=== PATIENT | female | born 1990 | race Hispanic/Latino ===

== ENCOUNTER → 2017-10-23 | Outpatient (CLI) | payer BC ==
[~2017-10-23] MED LIST: HYDROCODON-ACE1 EA10 PO
--- NOTE | 2017-10-24 08:29 | Diagnostic Imaging Report ---
#[id number] - USBRECOMLT ULTRASOUND OF THE LEFT BREAST : 10/23/2017 No prior exams were available for comparison. Color flow and real-time ultrasound were performed on the entire left breast with scanning in all four quadrants, retroareolar region and the left axilla. -At 2 o'clock 5 cm from the nipple and corresponding to the palpable abnormality is a hypoechoic slightly heterogenous mass measuring 0.9 x 0.9 x 1.1 cm. This mass is hypovascular but is painful with palpation. -At 2 o'clock also 5 cm from the nipple there is a hypechoic mass measuring 1.1 x 0.7 x 1.6 cm. This mass has smooth margins and is hypovascular. -At 3 o'clock 3 cm from the nipple is a septated cyst measuring 0.9 x 0.6 x 0.6 cm. -At 3 o'clock also 3 cm from the nipple is a simple cyst measuring 1.0 x.0.4 x 0.6 cm. -At 10 o'clock 5 cm from the nipple is a simple cyst measuring 0.9 x 0.4 x 0.8 cm. 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 A follow-up ultrasound in 6 months is recommended to demonstrate stability. The patient was notified of these findings and further treatment and/or diagnostic options given. Rell Wallace Jr., D.O. cw/:10/23/2017 13:22:56 Camp Advisor: VICENTE SMITH, [facility] letter sent: Followup Recommended Ultrasound BI-RADS: 3 Probably benign
== END ==
LOC: US 09:24
PROVIDERS: ATTEND Surgery
DX: D24.2 Benign neoplasm of left breast (principal)

== ENCOUNTER → 2017-12-05 | Day surgery (SDC) | payer BC ==
[2017-12-03 10:56] LABS: BASOPHILS % 0.3 % (0.0-1.0); EOSINOPHILS % 0.3 % (0.0-6.0); HEMATOCRIT 40.2 % (34.2-44.1); HEMOGLOBIN 14.3 g/dL (12.0-16.0); LYMPHOCYTES # (AUTO) 2.6 (1.0-3.2); LYMPHOCYTES % 36.9 % (18.0-39.1); MEAN CORPUSCULAR HEMOGLOBIN 31.9 pg (28-32); MEAN CORPUSCULAR HGB CONC 35.6 g/dL (31-35); MEAN CORPUSCULAR VOLUME 89.7 fL (81-99); MONOCYTES # (AUTO) 0.4 (0.2-0.8); NEUTROPHILS % 56.1 % (38.7-80.0); PLATELET COUNT 248 x10e3/uL (140-360); RED BLOOD COUNT 4.48 x10e6/uL (3.6-5.1); RED CELL DISTRIBUTION WIDTH 12.1 % (11.7-14.4)
[~2017-12-05] MED LIST changes: +ACETAMINOPHEN 1000 MG/100 ML IV ONE; +ALPRAZOLAM0.25 MG PO; +BUPIVACAINE 0.25%/EPI 30ML SDV INJ ONE; +DEXAMETHASONE SOD PHOS INJ 4 MG/ML VIAL ONE; +FENTANYL CITRATE/PF 100MCG/2 ML INJ ONE; +KETOROLAC TROMETHAMINE 30 MG/ML VIAL ONE; +LIDOCAINE HCL 2% LOCAL INJ 5 ML SDV VIAL INJ ONE; +MIDAZOLAM HCL 2 MG/2 ML VIAL ONE; +ONDANSETRON HCL INJ 2 MG/ML VIAL ONE; +PROPOFOL IV EMULSION 10 MG/ML 20 ML VIAL ONE; +SEVOFLURANE INHAL SOLN 250 ML PEN BTL ONE
--- OUTSIDE RECORDS SUMMARY | 2017-12-05 08:18 | XMS REPORT ---
[facility] Address Unknown Phone Unavailable Care Team Providers Care Service Inspector Name Role Phone MAKAYLA RUIZ Unavailable Unavailable Problems This patient has no known problems. Allergies, Adverse Reactions, Alerts This patient has no known allergies or adverse reactions. Medications This patient has no known medications. Results Test Description Test Time Test Comments Text Results Atomic Results Result Comments US BREAST COMPLETE LEFT [place] [address] Patient Name: CELSA MAYO MR #: [id number] : 1990 Age/Sex: 26/F Req #: [id number] Adm Physician: Ordered by: MAKAYLA RUIZ MD Report #: [id number] Location: US Room/Bed: Procedure: [id number] US/US BREAST COMPLETE LEFT Exam Date: 10/23/17 Exam Time: 1000 REPORT STATUS: Signed #[id number] - USBRECOMLT ULTRASOUND OF THE LEFT BREAST : 10/23/2017 No prior exams were available for comparison. Color flow and real-time ultrasound were performed on the entire left breast with scanning in all four quadrants, retroareolar region and the left axilla. -At 2 o'clock 5 cm from the nipple and corresponding to the palpable abnormality is a hypoechoic slightly heterogenous mass measuring 0.9 x 0.9 x 1.1 cm. This mass is hypovascular but is painful with palpation. -At 2 o'clock also 5 cm from the nipple there is a hypechoic mass measuring 1.1 x 0.7 x 1.6 cm. This mass has smooth margins and is hypovascular. -At 3 o'clock 3 cm from the nipple is a septated cyst measuring 0.9 x 0.6 x 0.6 cm. -At 3 o'clock also 3 cm from the nipple is a simple cyst measuring 1.0 x.0.4 x 0.6 cm. - At 10 o'clock 5 cm from the nipple is a simple cyst measuring 0.9 x 0.4 x 0.8 cm. 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 A follow-up ultrasound in 6 months is recommended to demonstrate stability. The patient was notified of these findings and further treatment and/or diagnostic options given. Luis Eduardo Wallace Jr., D.O. cw/:10/23/2017 13:22:56 Swing Grinder: VICENTE SMITH, [facility] letter sent: Followup Recommended Ultrasound BI-RADS: 3 Probably benign Dictated By: LUIS EDUARDO WALLACE DO 1322 Transcribed By: DI on 10/23/17 1322 COPY TO: MAKAYLA RUIZ MD
--- NOTE | 2017-12-05 13:32 | Operative Report ---
DATE OF PROCEDURE: December 05, 2017 PREOPERATIVE DIAGNOSIS: Left breast fibroadenoma times 2. POSTOPERATIVE DIAGNOSIS: Left breast fibroadenoma times 2. OPERATION PERFORMED: Left partial mastectomy. ANESTHESIA: General. COMPLICATIONS: None. ESTIMATED BLOOD LOSS: Minimal. DESCRIPTION OF PROCEDURE: With the patient lying in bed in the supine position under good general anesthesia, the left breast was prepped with Betadine solution and draped in the usual manner. The area overlying the palpable masses in the upper outer quadrant of the left breast was then infiltrated with 1/4 percent Marcaine with epinephrine. An incision was made. It was carried down through the subcutaneous tissue. The 2 small masses were then identified. Each one of them was about a centimeter in size. There were some fibrocystic changes of the breast tissue in between. The 2 lesions were then removed together in the same piece of breast tissue, and they were sent for pathological examination. The whole area was then thoroughly irrigated. Perfect hemostasis was ascertained. The breast tissue was then reapproximated with interrupted sutures of 2-0 chromic, and the skin was closed with subcuticular 5-0 Vicryl. A dressing was applied. The sponge, lap and needle count was correct. The patient tolerated the procedure well and returned to the recovery room in stable condition. Job#: [id number]
== END | disposition home or self-care (01) ==
LOC: OR 08:16
PROVIDERS: ATTEND Surgery
DX: D24.2 Benign neoplasm of left breast (principal); N60.12 Diffuse cystic mastopathy of left breast; Z01.812 Encounter for preprocedural laboratory examination
CPT/HCPCS: 19301; 36415; 81025; 85025; 88305; J1100; J1885; J2001; J2250; J2405

== ENCOUNTER 2018-01-29 16:35 | Emergency (ER) | payer BC ==
[~2018-01-29] VITALS: Ht 167.6 cm; Wt 81.6 kg
[~2018-01-29 16:35] MED LIST changes: -ACETAMINOPHEN 1000 MG/100 ML IV ONE; -BUPIVACAINE 0.25%/EPI 30ML SDV INJ ONE; -DEXAMETHASONE SOD PHOS INJ 4 MG/ML VIAL ONE; -FENTANYL CITRATE/PF 100MCG/2 ML INJ ONE; -KETOROLAC TROMETHAMINE 30 MG/ML VIAL ONE; -LIDOCAINE HCL 2% LOCAL INJ 5 ML SDV VIAL INJ ONE; -MIDAZOLAM HCL 2 MG/2 ML VIAL ONE; -ONDANSETRON HCL INJ 2 MG/ML VIAL ONE; -PROPOFOL IV EMULSION 10 MG/ML 20 ML VIAL ONE; -SEVOFLURANE INHAL SOLN 250 ML PEN BTL ONE
[2018-01-29] MEDS ORDERED: SODIUM CHLORIDE 0.9% 1000ML 1,000 ML IV ONE (17:00)
[2018-01-29 17:45] LABS: ANION GAP 11.7 mmol/L (8-16); BLOOD UREA NITROGEN 6 mg/dL (7-26); BUN/CREATININE RATIO 8 (6-25); CALCIUM 9.8 mg/dL (8.4-10.2); CARBON DIOXIDE 27 mmol/L (22-29); CHLORIDE 104 mmol/L (98-107); CREATINE KINASE 204 IU/L (29-168); CREATININE, SERUM 0.71 mg/dL (0.57-1.11); EST GLOMERULAR FILTRATION RATE > 60 ML/MIN (60-); GLUCOSE 83 mg/dL (74-118); POTASSIUM 3.7 mmol/L (3.5-5.1); SODIUM 139 mmol/L (136-145)
[2018-01-29 20:07] VITALS: BP 133/89
== END 2018-01-29 19:40 | disposition home or self-care (01) ==
LOC: ER 16:35
CPT/HCPCS: 36415; 80048; 82550; 93005; 99284; J7030

== ENCOUNTER 2019-04-27 05:29 | Observation (INO) | payer BC, SELFPAY ==
[~2019-04-27] VITALS: Ht 167.6 cm; Wt 81.6 kg
--- OUTSIDE RECORDS SUMMARY | 2019-04-27 05:37 | XMS REPORT | Continuity of Care Document ---
Author Author [facility] Organization [facility] Address Unknown Phone Unavailable Care Team Providers Care Planning Management It Specialist Name Role Phone MD Barbara, Peter PP Unavailable Insurance Providers Payer name Policy type / Coverage type Policy ID Covered alliance party ID Policy [place] Encounters Encounter Performer Location Date Office Visit Peter Jimenez MD [facility] Colorectal Surgery February 17, 2015 Problems Problem Effective Dates Problem Status DIARRHEA January 27, 2015 Active ANAL FISSURE January 27, 2015 Active RECTAL PAIN January 27, 2015 Active Medications Medication Instructions Start Date Status PANTOPRAZOLE SODIUM 40 MG TBEC January 27, 2015 Active ANALPRAM-HC CREA January 27, 2015 Active NIFEDIPINE 0.2% LIDOCAINE 5% TOPICAL COMPOUND CREAM apply to affected area TID as directed January 27, 2015 Active Vital Signs Date Description Test Result January 27, 2015 height E&M - 8302-2 HEIGHT 66 in January 27, 2015 weight E&M - 3141-9 WEIGHT 171 lb January 27, 2015 temperature E&M TEMPERATURE 98.4 deg f January 27, 2015 blood pressure, systolic - 8480-6 BP SYSTOLIC 124 mm Hg January 27, 2015 blood pressure, diastolic - 8462-4 BP DIASTOLIC 86 mm Hg February 17, 2015 height E&M - 8302-2 HEIGHT 66 in February 17, 2015 weight E&M - 3141-9 WEIGHT 177 lb February 17, 2015 temperature E&M TEMPERATURE 98.6 deg f February 17, 2015 pulse rate E&M - 8867-4 PULSE RATE 69 /min February 17, 2015 blood pressure, systolic - 8480-6 BP SYSTOLIC 129 mm Hg February 17, 2015 blood pressure, diastolic - 8462-4 BP DIASTOLIC 85 mm Hg
--- OUTSIDE RECORDS SUMMARY | 2019-04-27 05:37 | XMS REPORT | Continuity of Care Document ---
Author Author [facility] Organization [facility] Address Unknown Phone Unavailable Care Team Providers Care Market Relationship Manager Name Role Phone MD Barbara, Peter PP Unavailable Insurance Providers Payer name Policy type / Coverage type Policy ID Covered green party ID [place] Encounters Encounter Performer Location Date Office Visit Peter Jimenez MD [facility] Surgery [place] January 27, 2015 Problems Problem Effective Dates Problem Status [...]
--- OUTSIDE RECORDS SUMMARY | 2019-04-27 05:37 | XMS REPORT | Continuity of Care Document ---
Author Author [facility] Organization [facility] Address Unknown Phone Unavailable Care Team Providers Care Radiology Assistant Name Role Phone [email or web address] Information [employer] Unavailable Unavailable Problems Problem Status Onset Date Classification Date Reported Comments Source Anal fissure1, 2 Active 01/27/2015 Problem 09/17/2017 Data migrated from [employer] on 04/05/15. Data migrated from [employer] on 04/05/15. [facility] Diarrhea3, 4 Active 01/27/2015 Problem 09/17/2017 Data migrated from [employer] on 04/05/15. Data migrated from [employer] on 04/05/15. Medical Group Rectal pain5, 6 Active 01/27/2015 Problem 09/17/2017 Data migrated from [employer] on 04/05/15. Data migrated from [employer] on 04/05/15. Medical Group DIARRHEA Active 01/27/2015 Condition 02/17/2015 Medical Group ANAL FISSURE Active 01/27/2015 Condition 02/17/2015 Medical Group RECTAL PAIN Active 01/27/2015 Condition 02/17/2015 [facility] Group Medications Medication Details Route Status Patient Instructions Ordering Provider Order Date Source Brompheniramine Maleate 0.4 MG/ML / Dextromethorphan Hydrobromide 2 MG/ML / Pseudoephedrine Hydrochloride 6 MG/ML Oral Solution [Bromfed DM] See Instructions, PRN cough, 5-10 mL PO TID 8 day, # 200 mL, 0 Refill(s), Pharmacy: [id number] Inactive 09/14/2017 Medical Group azithromycin 250 mg oral tablet See Instructions, Take 2 tablets by mouth the first day then 1 tablet by mouth daily on days 2-5., X 5 day, # 6 tab, 0 Refill(s), Pharmacy: [facility] Active 09/14/2017 Medical Group PANTOPRAZOLE SODIUM 40 MG TBEC Active 01/27/2015 [facility] ANALPRAM-HC CREA Active 01/27/2015 Medical Group NIFEDIPINE 0.2% LIDOCAINE 5% TOPICAL COMPOUND CREAM apply to affected area TID as directed Active 01/27/2015 [facility] Allergies, Adverse Reactions, Alerts No Known Medication Allergies Immunizations No Data Provided for This Section Results No Data Provided for This Section Pathology Reports No Data Provided for This Section Diagnostic Reports No Data Provided for This Section Consultation Notes No Data Provided for This Section Discharge Summaries No Data Provided for This Section History and Physicals No Data Provided for This Section Vital Signs Vital Sign Value Date Comments Source BMI Calculated 28.99 09/14/2017 Medical Group Height 167.64 cm 09/14/2017 [facility] Temperature Oral (F) 97.7 F 09/14/2017 [facility] Heart Rate 94 09/14/2017 [facility] Group Systolic (mm Hg) 109 09/14/2017 [facility] Diastolic (mm Hg) 75 09/14/2017 Medical Group Respitory Rate 14 09/14/2017 Medical Group Weight 81.477 09/14/2017 [facility] Group Height 66 02/17/2015 Medical Group Weight 177 02/17/2015 [facility] Temperature Oral (F) 98.6 F 02/17/2015 Medical Group Heart Rate 69 02/17/2015 [facility] Systolic (mm Hg) 129 02/17/2015 [facility] Diastolic (mm Hg) 85 02/17/2015 [facility] Height 66 01/27/2015 [facility] Weight 171 01/27/2015 [facility] Temperature Oral (F) 98.4 F 01/27/2015 [facility] Group Systolic (mm Hg) 124 01/27/2015 Medical Group Diastolic (mm Hg) 86 01/27/2015 [facility] Encounters Location Location Details Encounter Type Encounter Number Reason For Visit Attending Provider ADM Date DC Date Status Source [facility] [place] Office Visit [id number] Peter Jimenez MD 01/27/2015 01/27/2015 [facility] Surgery [place] Office Visit [id number] Peter Jimenez MD 01/27/2015 01/27/2015 [facility] Colorectal Surgery Office Visit [id number] Peter Jimenez MD 02/17/2015 02/17/2015 [facility] Outpatient [id number] KIMBERLY DAMONDHEERAJ 09/14/2017 Active [facility] [place] Outpatient [id number] David Everett 09/14/2017 09/15/2017 Medical Group Procedures No Data Provided for This Section Assessment and Plan No Data Provided for This Section Plan of Care No Data Provided for This Section Social History Social History Date Source Social History TypeResponse Smoking Status Never smoker; Ready to change: No; Concerns about tobacco use in household: No; Exposure to Tobacco Smoke None; Cigarette Smoking Last 365 Days No; Reg Smoking Cessation Counseling No 09/14/2017 Medical Group Family History No Data Provided for This Section Advance Directives No Data Provided for This Section Functional Status No Data Provided for This Section
--- OUTSIDE RECORDS SUMMARY | 2019-04-27 05:37 | XMS REPORT | Summary of Care ---
Author Author [facility] Address Unknown Phone Unavailable Encounter PAT Dunbar(BENJAMIN) [id number] Date(s): 09/14/17 - 09/14/17 [facility] [address] [place] [phone] Discharge Disposition: Home or Self Care Referring Physician: David Floyd MD Vital Signs Most recent to 1 oldest [Reference Range]: Height 167.64 cm (09/14/17 4:58 PM) Temperature Oral 97.7 DegF [96.4-99.1 DegF] (09/14/17 4:58 PM) Blood Pressure 109/75 mmHg [90-140/60-90 mmHg] (09/14/17 4:58 PM) Respiratory Rate 14 BRMIN [14-20 BRMIN] (09/14/17 4:58 PM) Peripheral Pulse 94 bpm Rate [60-100 bpm] (09/14/17 4:58 PM) Weight 81.477 kg (09/14/17 4:58 PM) Body Mass Index 28.99 m2 (09/14/17 4:58 PM) Problem List Condition Effective Dates Status Health Status Informant Anal fissure1, 2 01/27/15 Active Diarrhea3, 4 01/27/15 Active Rectal pain5, 6 01/27/15 Active 1Data migrated from [employer] on 04/05/15. 2Data migrated from [employer] on 04/05/15. 3Data migrated from [employer] on 04/05/15. 4Data migrated from [employer] on 04/05/15. 5Data migrated from [employer] on 04/05/15. 6Data migrated from [employer] on 04/05/15. Allergies, Adverse Reactions, Alerts Substance Reaction Severity Status NKDA1 Active 1Data migrated from [employer] on 12/01/15. Originally documented as NKA. Medications azithromycin 250 mg oral tablet See Instructions, Take 2 tablets by mouth the first day then 1 tablet by mouth d aily on days 2-5., X 5 day, # 6 tab, 0 Refill(s), Pharmacy: [id number] Start Date: 09/14/17 Stop Date: 09/19/17 Status: Ordered Bromfed DM oral syrup See Instructions, PRN cough, 5-10 mL PO TID 8 day, # 200 mL, 0 Refill(s), Pharma [facility]: [id number] Start Date: 09/14/17 Stop Date: 09/14/17 Status: Completed Results No data available for this section Immunizations No data available for this section Procedures No data available for this section Social History Social History Type Response Smoking Status Never smoker; Ready to change: No; Concerns about tobacco use in household: No; Exposure to Tobacco Smoke None; Cigarette Smoking Last 365 Days No; Reg Smoking Cessation Counseling No Assessment and Plan No data available for this section
--- OUTSIDE RECORDS SUMMARY | 2019-04-27 05:37 | XMS REPORT | Continuity of Care Document ---
Author Author [facility] Organization [facility] Address Unknown Phone Unavailable Care Team Providers Care Clinical Documentation Clerk Name Role Phone MD Barbara, Peter PP Unavailable Insurance Providers Payer name Policy type / Coverage type Policy ID Covered republican ID Policy [place] Encounters Encounter Performer Location Date Office Visit Peter Jimenez MD [facility] Surgery [place] January 27, 2015 Problems Problem Effective Dates [...]
[2019-04-27] MEDS ORDERED: CEFAZOLIN SOD 1 GM/NS 50ML 50 ML IV ONE (06:09)
[2019-04-27] MEDS ORDERED: MUPIROCIN 2% OINT 22 GM TUBE ONE (06:17)
[2019-04-27] MEDS ORDERED: BACITRACIN 50,000 UNIT VIAL ONE (07:25)
[2019-04-27] MEDS ORDERED: BUPIVACAINE 0.25% 30ML SDV INJ ONE (08:29)
[2019-04-27] MEDS ORDERED: BUPIVACAINE LIPOSOME/PF 266 MG/20 ML IJ ONE (08:29)
[2019-04-27] MEDS ORDERED: ACETAMINOPHEN 325 MG TAB PO PRN (11:30)
[2019-04-27] MEDS ORDERED: FENTANYL CITRATE/PF 100MCG/2 ML INJ ONE ×2 (12:00→18:35)
[2019-04-27] MEDS ORDERED: MEPERIDINE HCL INJ 25 MG/ML VIAL ONE (12:05)
--- OUTSIDE RECORDS SUMMARY | 2019-04-27 12:56 | XMS REPORT | Continuity of Care Document ---
Author Author [facility] Organization [facility] [facility] Address Unknown Phone Unavailable Care Team Providers Care Record Keeper Name Role Phone Network [employer] Information [employer] Unavailable Unavailable Problems Problem Status Onset Date Classification Date Reported Comments Source Anal fissure1, 2 Active 01/27/2015 Problem 09/17/2017 Data migrated from [employer] on 04/05/15. Data migrated from [employer] on 04/05/15. Medical Group Diarrhea3, 4 [...] day, # 200 mL, 0 Refill(s), Pharmacy: [id number] Inactive 09/14/2017 Medical Group azithromycin 250 mg oral tablet See Instructions, Take 2 tablets by mouth the first day then 1 tablet by mouth daily on days 2-5., X 5 day, # 6 tab, 0 Refill(s), Pharmacy: [facility] Active 09/14/2017 Medical Group PANTOPRAZOLE SODIUM 40 MG TBEC Active 01/27/2015 [facility] ANALPRAM-HC CREA Active 01/27/2015 Medical Group [...] Provider ADM Date DC Date Status Source [facility] [place] Office Visit [id number] Peter Jimenez MD 01/27/2015 01/27/2015 [facility] [place] Office Visit [id number] Peter Jimenez MD 01/27/2015 01/27/2015 [facility] Colorectal Surgery Office Visit [id number] Peter Jimenez MD 02/17/2015 02/17/2015 Medical [facility] Outpatient [id number] KIMBERLY DAMONDHEERAJ 09/14/2017 Active [facility] [place] Outpatient [id number] David Everett 09/14/2017 09/15/2017 Medical Group Procedures [...]
[2019-04-27 13:27] VITALS: BP 114/78
[2019-04-27 13:55] VITALS: BP 114/78
[2019-04-27] MEDS: CEFAZOLIN SOD 1 GM/NS 50ML 50 ML IV SCH ×2 (14:29→22:05)
[2019-04-27] MEDS: HYDROCODONE/APAP 7.5MG-325MG 1 EA TAB PO PRN (14:34)
--- NOTE | 2019-04-27 15:06 | Operative Report ---
DATE OF PROCEDURE: 04/27/2019 SURGEON: Humphrey De La Vega MD PREOPERATIVE DIAGNOSES: 1. involution of breast. 2. Abdominal lipodystrophy. POSTOPERATIVE DIAGNOSES: 1. involution of breast. 2. Abdominal lipodystrophy. PROCEDURES: 1. Bilateral augmentation mammoplasty. 2. Abdominal plasty. ANESTHESIA: General. HISTORY: The patient is a 28-year-old female, who complains of involution of the breasts and abdominal lipodystrophy. The risks, benefits, and alternatives of treatment were discussed with the patient. She is prepared to undergo the procedure as outlined. She has signed the [employer] [place] [employer] consent forms for the aforementioned procedures. PROCEDURE IN DETAIL: The patient was marked preoperatively in the holding area. She was brought to the operating theater and after the induction of adequate general anesthesia, placement of a Parisi catheter and Venodyne compression boots. She is prepped and draped in a supine position and a time-out was performed. The procedure was begun on the augmentation mammoplasty 1st. Two inframammary incisions were marked out 6 to 6-1/2 cm in length beneath each breast. The incisions were made through the skin and subcutaneous tissue. Bleeding was controlled using the electrocautery. The electrocautery was used to deepen the incision through the subcutaneous and breast tissue. The inferior border of the pectoralis major muscle was then identified and the dissection continues in the lower half of each breast in the prepectoral plane. This dual plane technique is utilized to allow redraping of the tissues for maximum correction of the ptosis. Once both lower hemispheres are completely released, the pectoralis major muscles are transected using the electrocautery, leaving a cuff of tissue on the inframammary fold to maintain integrity of the fold. Once the pectoralis major muscles are transected, the subpectoral space is entered and the plane between the pec major and pec minor was developed. The excision continues both medially, laterally, and superiorly until the pockets were developed to the corresponding tarango on the skin. Both pockets were copiously irrigated with bacteriostatic saline and checked for hemostasis. At this point, 450 mL sizers were placed into each breast pocket. There are some correction of the pockets, which needs to be performed in order to allow smooth draping of the tissues over the sizers. The sizes are removed and the pockets were then adjusted accordingly. At this point, the sizers were placed back into the pockets and the patient was sat up and assessed. There was noted to be a good contour of the soft tissues over the implants and then the patient was made supine. This implant sizers were removed. Both pockets were checked for hemostasis, which was made absolute using electrocautery. Both pockets were then irrigated with an antibiotic containing solution. Two 450 mL moderately high profile round smooth implants are prepared per bowling ball molder's specification. The lot number and serial number located within the patient's chart. The implants were then placed within the respective pockets and then the incisions were closed in layers as follows. A 3-0 Monocryl was used in interrupted fashion to approximate the deep subcutaneous tissue 4-0 Monocryl was used in an interrupted buried fashion to approximate the deep dermis and 5-0 Monocryl was used in a running subcuticular fashion to approximate the epidermis. Steri-Strips were applied to the incisions. Attention was turned to the performance of the abdominoplasty. At this point, the midline from xiphoid to pubic symphysis was marked out and it was noted that the umbilicus was deviated slightly to the right. Also of note, it is that the patient has had previous umbilical piercings, which have distorted the umbilicus. Approximately, 8 cm from the antritis, a horizontal incision was marked 6 to 7 cm on each side of the midline and then the incision was carried towards the anterior superior iliac spines and towards the lateral hips. The incision was made through the skin and subcutaneous tissues. Bleeding is controlled using the electrocautery. Using electrocautery, the incision was deepened through the subcutaneous tissue and through Claudette's fascia. At this point, the anterior rectus fascia was then identified and the anterior skin and subcutaneous tissue was then elevated off the rectus fascia. This dissection continues with electrocautery until the umbilicus was reached. At this point, the umbilicus was marked down sharply circumscribed and released from the anterior skin and subcutaneous tissue, maintaining a generous amount of subcutaneous tissue to maintain vascularity. Once the umbilicus was completely released, the dissection continues cephalad to the umbilicus all the way to the xiphoid and the costal margins. Care was taken to coapt all of the perforators and ensure adequate hemostasis. Once the entire anterior soft tissue has been elevated off the rectus fascia, a rectus plication was marked out from the xiphoid to the umbilicus, and then from the umbilicus to the pubic symphysis. The maximum width of the plication is at the level of the umbilicus and corresponds to a 7 cm. At this point, using 0 Ethibond suture in an interrupted buried fashion. Plication of the anterior rectus fascia was performed from the xiphoid to the level of the umbilicus, directly below the umbilicus the plication continues in an interrupted fashion from the umbilicus to the pubic symphysis. At this juncture, for postop analgesia, a vial of Exparel which is 20 mL was mixed with 0.5% plain Marcaine 30 mL, and then a through 1 mL injections adjacent to the midline and then adjacent to that line of injection into the rectus fascia and muscle. The Exparel was injected bilaterally. At this juncture, the wound was copiously irrigated with bacteriostatic saline and the patient was then put in a posture with the head of the bed is approximately 40 to 45 degrees. The hips were flexed and the knees were flexed as well with maximum redundancy of the anterior skin and subcutaneous tissues. The skin was marked out and then judiciously excised. The wound edges made hemostatic using the electrocautery. At this point, two 15-Macedonian Rosalio-Matos drains were placed in the abdominal wound and secured to the skin with 3-0 nylon sutures. One drain courses above the umbilicus, the other course was below the umbilicus. The skin was then closed in the following fashion. 2-0 PDS was used in interrupted fashion to approximate Claudette's fascia. INSORB staplers were then used to approximate the dermis and subcutaneous tissue. A 4-0 Monocryl running subcuticular stitch was then used to reapproximate the epidermis. In the midline, directly over the umbilicus, a 2 cm vertical ellipse of tissue was marked out and then incised through the skin and subcutaneous tissues, and removed. The area was generously defatted using electrocautery. At this point, the umbilicus was brought out onto the anterior abdominal wall and secured using 3-0 Monocryl suture in an interrupted buried fashion followed by simple circumferential 5-0 nylon sutures. At the completion of the procedure, the umbilicus was noted to be well vascularized. The abdominal incision is hemostatic and the PERRY drains were placed on suction. Steri-Strips were applied to all the incisions. Sterile dressings are applied and the patient is then transferred to a hospital bed. She was taken to recovery room in satisfactory condition and then admitted for overnight observation. The estimated blood loss for the entire procedure was approximately 125 to 150 mL. MD ABNER Toscano/MAGLAYL /[id number]
[2019-04-27] MEDS: DOCUSATE SODIUM 100 MG CAP PO SCH (16:11)
[2019-04-27 16:48] VITALS: BP 105/55
[2019-04-27] MEDS ORDERED: ACETAMINOPHEN 1000 MG/100 ML IV ONE (17:16)
[2019-04-27] MEDS ORDERED: SEVOFLURANE INHAL SOLN 250 ML PEN BTL ONE (17:16)
[2019-04-27] MEDS ORDERED: GLYCOPYRROLATE INJ 1MG/ 5 ML SYR ONE (17:16)
[2019-04-27] MEDS ORDERED: ONDANSETRON HCL INJ 2MG/ML 2ML 2 MG/ML VIAL ONE (17:16)
[2019-04-27] MEDS ORDERED: NEOSTIGMINE 5 MG/5ML SYR ONE (17:16)
[2019-04-27] MEDS ORDERED: LIDOCAINE HCL 2% LOCAL INJ 5 ML SDV VIAL INJ ONE (17:16)
[2019-04-27] MEDS ORDERED: ROCURONIUM BROMIDE 10 MG/ML 5ML VIAL ONE (17:16)
[2019-04-27] MEDS ORDERED: PROPOFOL IV EMULSION 10 MG/ML 20 ML VIAL ONE (17:16)
[2019-04-27] MEDS ORDERED: DEXAMETHASONE SOD PHOS INJ 4 MG/ML VIAL ONE (17:16)
[2019-04-27] MEDS: HYDROMORPHONE 1MG/1ML INJ IV PRN ×2 (17:34→22:21)
[2019-04-27] MEDS: ONDANSETRON HCL 4 MG ORAL DISINTEGRATING TAB PO PRN (17:35)
[2019-04-27] MEDS ORDERED: MORPHINE SULFATE INJ 10 MG/ML ONE (18:35)
[2019-04-27] MEDS ORDERED: MIDAZOLAM HCL 2 MG/2 ML VIAL ONE (18:35)
[2019-04-27 20:22] VITALS: BP 99/58
[2019-04-27] MEDS: LACTATED RINGER'S 1,000 ML IV SCH (21:30)
--- NOTE | 2019-04-27 22:00 | NUR ---
Pt abdominal incision gauze at umbilicus saturated. Sterile dressing changed at this time.
[2019-04-28 00:16] VITALS: BP 100/63
[2019-04-28] MEDS: LACTATED RINGER'S 1,000 ML IV SCH ×2 (02:04→07:30)
[2019-04-28] MEDS: HYDROCODONE/APAP 7.5MG-325MG 1 EA TAB PO PRN ×2 (02:11→06:25)
[2019-04-28 05:11] VITALS: BP 100/63
[2019-04-28 05:17] VITALS: BP 102/52
[2019-04-28] MEDS: CEFAZOLIN SOD 1 GM/NS 50ML 50 ML IV SCH (05:32)
--- NOTE | 2019-04-28 07:00 | NUR ---
Report given to ARCHIE Moran dayshift nurse at this time.
--- NOTE | 2019-04-28 07:13 | NUR ---
Parisi DC'd at this time without any complications. DTV [id number].
[2019-04-28 08:04] VITALS: BP 99/56
[2019-04-28] MEDS ORDERED: ENOXAPARIN SOD INJ 40 MG/0.4 ML SYR SC SCH (09:00)
[2019-04-28] MEDS: DOCUSATE SODIUM 100 MG CAP PO SCH (09:06)
[2019-04-28] MEDS: ONDANSETRON HCL 4 MG ORAL DISINTEGRATING TAB PO PRN (09:25)
[2019-04-28] MEDS: HYDROMORPHONE 1MG/1ML INJ IV PRN (09:26)
[2019-04-28 09:43] VITALS: BP 99/56
--- NOTE | 2019-04-28 12:00 | NUR ---
NO VOIDING AT THIS TIME BLADDER SCAN DONE >350 CC OF URINE NOTED PT STATES SHE WILL TRY TO VOID AND WALKER AGAIN AND CALL ME WHEN SHE VOIDS
[2019-04-28 12:17] VITALS: BP 105/56
--- NOTE | 2019-04-28 12:37 | NUR ---
PT VOIDED INTO TOILET AT THIS TIME WILL GET DC PAPERWORK READY
[2019-04-28] MEDS ORDERED: KEFLEX500 MG PO (13:00)
[2019-04-28] MEDS ORDERED: NORCO 10-325 T1 EACH PO (13:00)
--- NOTE | 2019-04-28 13:14 | NUR ---
dc instructions given and prescriptions . pt verbalized understanding iv dc pressure dressing applied and taped pt is waiting for ride home at this time
== END 2019-04-28 14:01 | disposition home or self-care (01) ==
LOC: OR 05:29 → PACU V 11:32 → MED/SURG 13:15
PROVIDERS: ADMIT Plastic Surgery; ATTEND Plastic Surgery
DX: N60.82 Other benign mammary dysplasias of left breast (principal); N60.81 Other benign mammary dysplasias of right breast; E88.1 Lipodystrophy, not elsewhere classified
CPT/HCPCS: 15847; 19325; 81025; C1789; C9290; G0378 ×2; J0131; J0690 ×2; J1100; J1170 ×2; J1650; J2001; J2175; J2250; J2270; J2405; J2704; J3010; J3490; J7121; Q0162 ×2

== ENCOUNTER → 2020-03-10 | Day surgery (SDC) | payer BC ==
[~2020-03-10] MED LIST changes: +ACETAMINOPHEN 1000 MG/100 ML IV ONE; +BUPIVACAINE 0.25%/EPI 30ML SDV INJ ONE; +BUPIVACAINE LIPOSOME/PF 266 MG/20 ML IJ ONE; +CEFAZOLIN SOD 1 GM VIAL ONE; +DEXAMETHASONE SOD PHOS INJ 4 MG/ML VIAL ONE; +FENTANYL CITRATE/PF 100MCG/2 ML INJ ONE; +KEFLEX500 MG PO; +KETOROLAC TROMETHAMINE 30 MG/ML VIAL ONE; +LIDOCAINE HCL 1% LOCAL INJ 20 ML VIAL ONE; +LIDOCAINE HCL 2% 30 ML TUBE ONE; +LIDOCAINE HCL 2% LOCAL INJ 5 ML SDV VIAL INJ ONE; +MEPERIDINE HCL INJ 25 MG/ML VIAL ONE; +MIDAZOLAM HCL 2 MG/2 ML VIAL ONE; +NORCO 10-325 T1 EACH PO; +ONDANSETRON HCL INJ 2MG/ML 2ML 2 MG/ML VIAL ONE; +PHENTERMINE HCL15 MG PO; +PROPOFOL IV EMULSION 10 MG/ML 20 ML VIAL ONE; +SEVOFLURANE INHAL SOLN 250 ML PEN BTL ONE
[2020-03-10 13:36] LABS: BASOPHILS % 0.1 % (0.0-1.0); EOSINOPHILS % 0.4 % (0.0-6.0); HEMATOCRIT 40.3 % (34.2-44.1); HEMOGLOBIN 13.6 g/dL (12.0-16.0); MEAN CORPUSCULAR HEMOGLOBIN 31.3 pg (28-32); MEAN CORPUSCULAR HGB CONC 33.7 g/dL (31-35); MEAN CORPUSCULAR VOLUME 92.9 fL (81-99); MONOCYTES # (AUTO) 0.4 (0.2-0.8); MONOCYTES % 5.2 % (4.4-11.3); NEUTROPHILS # (AUTO) 4.3 (2.1-6.9); NEUTROPHILS % 63.9 % (38.7-80.0); PLATELET COUNT 209 x10e3/uL (140-360); RED BLOOD COUNT 4.34 x10e6/uL (3.6-5.1)
[2020-03-10 13:58] LABS: ANION GAP 12.8 mmol/L (8-16); BLOOD UREA NITROGEN 13 mg/dL (7-26); BUN/CREATININE RATIO 18 (6-25); CALCIUM 9.1 mg/dL (8.4-10.2); CARBON DIOXIDE 22 mmol/L (22-29); CHLORIDE 108 mmol/L (98-107); CREATININE, SERUM 0.71 mg/dL (0.57-1.11); EST GLOMERULAR FILTRATION RATE > 60 ML/MIN (60-); GLUCOSE 79 mg/dL (74-118); POTASSIUM 3.8 mmol/L (3.5-5.1); SODIUM 139 mmol/L (136-145)
[2020-03-10 15:50] VITALS: BP 117/76
--- NOTE | 2020-03-10 20:59 | Operative Report ---
DATE OF PROCEDURE: 03/10/2020 SURGEON: Nakul Weaver MD PREOPERATIVE DIAGNOSIS: Thrombosed hemorrhoids, rule out anal fissure. POSTOPERATIVE DIAGNOSIS: Thrombosed hemorrhoids and posterior anorectal fissure. OPERATIONS PERFORMED: Left partial lateral superficial internal sphincterotomy and hemorrhoidectomy. ANESTHESIA: General. COMPLICATIONS: None. ESTIMATED BLOOD LOSS: Minimal. DESCRIPTION OF PROCEDURE: With the patient lying in bed in the supine position under good general endotracheal anesthesia. The patient was then placed in lithotomy. The perineum was prepped with Betadine solution and draped in the usual manner. Examination at this point revealed a posterior anorectal fissure with some thrombosed external hemorrhoids. A complete anorectal block was then performed using 0.25% Marcaine and 1% Xylocaine. A small incision was then made at the 3 o'clock position and the internal sphincter superficial fibers were then partially divided with the cautery to give us a good release. After this was done, hemostasis was ascertained, and the wound was closed with interrupted sutures of 3-0 chromic. A posterior fissure was then debrided and cleaned up, and an external hemorrhoid in this area was similarly resected. There was also two other groups of hemorrhoids at the 10 and 2 o'clock position and these were individually resected with hemostasis was ascertained, and the wound was then closed with interrupted sutures of 3-0 chromic. Hemostasis was ascertained. Exparel block was then performed. A Gelfoam pack impregnated with Xylocaine was placed. A dressing was applied. The sponge, lap, and needle counts were correct. The patient tolerated the procedure well and returned to the recovery room in stable condition. Nakul Weaver MD JLR/MODL /[id number]
== END | disposition home or self-care (01) ==
LOC: OR 12:14
PROVIDERS: ATTEND Surgery
DX: K64.5 Perianal venous thrombosis (principal); K60.2 Anal fissure, unspecified; Z11.59 Encounter for screening for other viral diseases
CPT/HCPCS: 36415; 46200; 46320; 80048; 81025; 85025; 87635; C9290; J0131; J0690; J1100; J1885; J2001 ×2; J2175; J2250; J2405; J2704; J3010

== ENCOUNTER → 2020-09-27 | Outpatient (CLI) | payer OTHER ==
[~2020-09-27] MED LIST changes: -ACETAMINOPHEN 1000 MG/100 ML IV ONE; -BUPIVACAINE 0.25%/EPI 30ML SDV INJ ONE; -BUPIVACAINE LIPOSOME/PF 266 MG/20 ML IJ ONE; -CEFAZOLIN SOD 1 GM VIAL ONE; +COVID-19 VACC, MRNA(MODERNA)/PF 100 MCG/0.5 ML VIAL IM ONE; -DEXAMETHASONE SOD PHOS INJ 4 MG/ML VIAL ONE; -FENTANYL CITRATE/PF 100MCG/2 ML INJ ONE; -KETOROLAC TROMETHAMINE 30 MG/ML VIAL ONE; -LIDOCAINE HCL 1% LOCAL INJ 20 ML VIAL ONE; -LIDOCAINE HCL 2% 30 ML TUBE ONE; -LIDOCAINE HCL 2% LOCAL INJ 5 ML SDV VIAL INJ ONE; -MEPERIDINE HCL INJ 25 MG/ML VIAL ONE; -MIDAZOLAM HCL 2 MG/2 ML VIAL ONE; -ONDANSETRON HCL INJ 2MG/ML 2ML 2 MG/ML VIAL ONE; -PROPOFOL IV EMULSION 10 MG/ML 20 ML VIAL ONE; -SEVOFLURANE INHAL SOLN 250 ML PEN BTL ONE
== END ==
LOC: VACCPMC 12:06
DX: Z23 Encounter for immunization (principal); Z20.828 Contact with and (suspected) exposure to other viral communicable diseases

== ENCOUNTER → 2020-11-06 | Outpatient (CLI) | payer OTHER ==
[~2020-11-06] MED LIST changes: -COVID-19 VACC, MRNA(MODERNA)/PF 100 MCG/0.5 ML VIAL IM ONE
[2020-11-06] MEDS: COVID-19 VACC, MRNA(MODERNA)/PF 100 MCG/0.5 ML VIAL IM ONE ×2 (11:18→11:47)
== END | DRG 951 ==
LOC: VACCPMC 11:07
DX: Z23 Encounter for immunization (principal); Z20.822 Contact with and (suspected) exposure to COVID-19
CPT/HCPCS: 0012A; 91301

== ENCOUNTER → 2021-06-20 | Outpatient (CLI) | payer BC, OTHER | LOC: VACCPMC 12:00 | DX: Z23 Encounter for immunization (principal); Z20.822 Contact with and (suspected) exposure to COVID-19 ==

== ENCOUNTER → 2021-09-26 | Outpatient (CLI) | payer BC, OTHER ==
[~2021-09-26] MED LIST changes: +COVID-19 VACC, MRNA(MODERNA)/PF 100 MCG/0.5 ML VIAL IM ONE
== END ==
LOC: VACCPMC 08:00
DX: Z23 Encounter for immunization (principal); Z20.822 Contact with and (suspected) exposure to COVID-19
CPT/HCPCS: 91301

== ENCOUNTER 2021-10-16 11:53 | Emergency (ER) | payer BC, OTHER ==
[~2021-10-16] VITALS: Ht 167.6 cm; Wt 70.3 kg
[~2021-10-16 11:53] MED LIST changes: -COVID-19 VACC, MRNA(MODERNA)/PF 100 MCG/0.5 ML VIAL IM ONE
[2021-10-16] MEDS ORDERED: KETOROLAC TROMETHAMINE 30 MG/ML VIAL IV NR (13:15)
[2021-10-16] MEDS ORDERED: ONDANSETRON HCL INJ 2MG/ML 2ML 2 MG/ML VIAL IV NR (13:15)
[2021-10-16] MEDS ORDERED: IOPAMIDOL 370 MG/ML 200 ML INFUS..BTL INJ ONE (13:56)
[2021-10-16] MEDS ORDERED: SODIUM CHLORIDE 0.9% 50ML 50 ML ONE (13:56)
== END 2021-10-16 14:00 | disposition home or self-care (01) ==
LOC: FSED 12:08
DX: R10.31 Right lower quadrant pain (principal); N20.0 Calculus of kidney; R11.0 Nausea; K59.00 Constipation, unspecified
CPT/HCPCS: 74177; 80053; 81003; 81025; 85025; 99283; J1885; J2405; Q9967

== ENCOUNTER → 2022-07-18 | Outpatient (CLI) | payer BC, OTHER | LOC: US 13:02 | PROVIDERS: ATTEND Obstetrics & Gynecology | DX: R10.2 Pelvic and perineal pain (principal) | CPT/HCPCS: 76830; 76856 ==

== ENCOUNTER → 2025-02-16 | Outpatient (REF) | payer BC | LOC: MRI 13:51 | PROVIDERS: ATTEND Surgery | DX: M54.50 Low back pain, unspecified (principal) | CPT/HCPCS: 72148 ==

== ENCOUNTER → 2025-03-02 | Day surgery (SDC) | payer BC ==
[~2025-03-02] MED LIST changes: +CYCLOBENZAPRINE10 MG PO; +LIDOCAINE HCL 2% LOCAL INJ 5 ML SDV VIAL INJ ONE; +NAPROSYN500 MG PO; +PROPOFOL IV EMULSION 10 MG/ML 20 ML VIAL ONE; +SEMAGLUTID0.5 MG/0.1
[2025-03-02] MEDS: LACTATED RINGER'S 1,000 ML ONE (07:53)
[2025-03-02 09:26] VITALS: TEMP 97.8
[2025-03-02 09:55] VITALS: BP 107/73; PULSE 83; RESP 16; O2SAT 99
== END | disposition home or self-care (01) ==
LOC: OR 07:24
PROVIDERS: ATTEND Physical Medicine & Rehabilitation Pain Medicine
DX: M51.16 Intervertebral disc disorders with radiculopathy, lumbar region (principal); M47.896 Other spondylosis, lumbar region; R93.7 Abnormal findings on diagnostic imaging of other parts of musculoskeletal system; E66.3 Overweight; Z79.1 Long term (current) use of non-steroidal anti-inflammatories (NSAID)
CPT/HCPCS: 64483; 81025; J2003; J2704; J7121; 77002